=== PATIENT | male | born 1970 | race Caucasian/White ===

== ENCOUNTER 2017-09-14 06:28 | Day surgery (SDC) | payer BC ==
[2017-09-08 23:02] VITALS: BMI 35.9
[~2017-09-14 06:28] MED LIST: DEXAMETHASONE SOD PHOSPHATE 10 MG/ML 1 ML VIAL IV ONE; HYDROmorphone 0.5 MG/0.5 ML SYRINGE IVP PRN; LACTATED RINGERS 1,000 ML IV SCH; LIDOCAINE 1% 20 ML VIAL (10MG/ML) FOR IV START INTRADERMA PRN; MIDAZOLAM 2 MG/2 ML VIAL IV PRN; ONDANSETRON 4 MG/2 ML VIAL IVP ONE; SCOPOLAMINE 1.5MG/72HR PATCH TRANSDERM ONE; ceFAZolin IN SWFI 2 GM/20 ML SYRINGE IVP ONE
[2017-09-14] MEDS ORDERED: fentaNYL (PF) 50 MCG/ML 2 ML AMP IV ONE (07:35)
[2017-09-14] MEDS ORDERED: SUCCINYLCHOLINE CHLORIDE 100 MG/5 ML SYR IV ONE (07:45)
[2017-09-14] MEDS ORDERED: MIDAZOLAM 2 MG/2 ML VIAL ONE (07:45)
[2017-09-14] MEDS ORDERED: BUPIVACAINE (PF) 0.5% 30 ML VIAL ONE (07:45)
[2017-09-14] MEDS ORDERED: ePHEDrine SULFATE/0.9% NACL/PF 50 MG/5 ML SYRINGE IV ONE (07:45)
[2017-09-14] MEDS ORDERED: PROPOFOL 10 MG/ML 20 ML VIAL IV ONE (07:45)
[2017-09-14] MEDS ORDERED: LIDOCAINE 1% INJ 10MG/ML (20 ML MDV) ONE (07:45)
[2017-09-14] MEDS ORDERED: PHENYLEPHRINE-0.9% NACL SYG 1 MG/10 ML SYRINGE ONE (07:45)
[2017-09-14] MEDS ORDERED: LIDOCAINE 2%-EPI 1:100,000 20 ML VIAL ONE (07:45)
--- NOTE | 2017-09-14 08:25 | P.ONQ ---
Anesthesiology Proc Note - PNB - Peripheral Nerve Block Performed Right Interscalene Single Time Out Performed: Yes Indication: Acute Post-Operative Pain, Analgesia Specifically requested for management of pain by DrPavel: Fernando Montero Sedation Type: Sedate with meaningful contact maintained Preparation: Sterile Prep Position: Supine Catheter: None Needle Types: Other (see comment) (Pajunk) Needle Size: 50mm (2") Needle Gauge: 21 Technique: Ultrasound Injectate: Other (see comment) (15cc 2% lidocaine + 15cc 0.5% Marcaine) Adjunct: Epinephrine (see comment for dilution ratio) (1:200,000) Blood Aspirated: No Pain Paresthesia on Injection Noted: No Resistance on Injection: Normal Events: Uneventful and Well Tolerated
[2017-09-14] MEDS ORDERED: ceFAZolin 1,000 MG in SODIUM CHLORIDE 0.9% 1,000 ML IRRIGATION ONE (08:45)
[2017-09-14] MEDS ORDERED: LACTATED RINGERS 1,000 ML IV ONE (09:23)
[2017-09-14] MEDS ORDERED: TEMAZEPAM 15 MG CAP PO PRN (09:29)
[2017-09-14] MEDS ORDERED: hydrOXYzine PAMOATE 25 MG CAP PO PRN (09:29)
[2017-09-14] MEDS ORDERED: SENNOSIDES-DOCUSATE SODIUM 1 EACH TAB PO PRN (09:29)
[2017-09-14] MEDS ORDERED: ONDANSETRON 4 MG/2 ML VIAL IVP PRN (09:29)
[2017-09-14] MEDS ORDERED: HYDROmorphone 2 MG/ML 1 ML SYRINGE IVP PRN ×3 (09:29)
[2017-09-14] MEDS: HYDROcodone/APAP 5-325MG 1 EACH TAB PO PRN ×3 (11:21→19:33)
[2017-09-14] MEDS: ceFAZolin IN SWFI 2 GM/20 ML SYRINGE IVP SCH (16:18)
[2017-09-14] MEDS: LACTATED RINGERS 1,000 ML IV SCH ×2 (16:23→22:32)
[2017-09-14 19:32] VITALS: RESP 18
[2017-09-15] MEDS: HYDROcodone/APAP 5-325MG 1 EACH TAB PO PRN ×2 (00:33→05:36)
[2017-09-15] MEDS: ceFAZolin IN SWFI 2 GM/20 ML SYRINGE IVP SCH (00:38)
[2017-09-15] MEDS: LACTATED RINGERS 1,000 ML IV SCH (01:23)
[2017-09-15 08:03] VITALS: BP 126/74; PULSE 77; TEMP 97.4
--- NOTE | 2017-09-15 08:36 | P.DS ---
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 The patient presented to the orthopedic office for evaluation. After discussion and consideration patient elects to proceed with a rotator cuff repair. The patient is seen preoperatively by his primary care physician and cleared for surgery. Patient is admitted to observation at [facility] on 09/14/2017 for right shoulder rotator cuff repair with distal clavicle excision and acromioplasty. The procedures performed without complication or sequelae. The patient is doing well postoperatively. Labs and vital signs are stable on day of discharge. On day of discharge patient's shoulder incision is healing well. There is minimal erythema. There is no drainage noted at this time. There is minimal soft tissue swelling to the right upper extremity. Patient has full hand, wrist , and elbow motion without difficulty or pain. Neurovascular status to the right upper extremity is intact. Patient is discharged to home in good condition. Patient Condition at Discharge: Stable Plan - Discharge Summary Discharge Rx Participant: Yes New Discharge Prescriptions: New Cephalexin [Keflex] 500 mg PO Q8HR #15 cap Sennosides-Docusate Sodium [Senokot-S] 2 tab PO DAILY #30 tablet HYDROcodone/APAP 7.5-325MG [[place] 7.5-325] 1 - 2 tab PO Q4-6H PRN #90 tab PRN Reason: Pain hydrOXYzine PAMOATE [Vistaril] 25 mg PO TID PRN #60 cap PRN Reason: Pain Continue Lisinopril-Hctz 20-12.5 mg [Zestoretic 20-12.5] 1 tab PO DAILY Ascorbic Acid [Vitamin C] 500 mg PO DAILY Multivitamin/Iron/Folic Acid [Centrum Adults Tablet] 1 each PO DAILY Nyquil 1 dose PO HS PRN PRN Reason: Sinus Symptoms Discharge Medication List Ascorbic Acid [Vitamin C] 500 mg PO DAILY 09/07/17 [History] Lisinopril-Hctz 20-12.5 mg [Zestoretic 20-12.5] 1 tab PO DAILY 09/07/17 [History ] Multivitamin/Iron/Folic Acid [Centrum Adults Tablet] 1 each PO DAILY 09/07/17 [ History] Nyquil 1 dose PO HS PRN 09/07/17 [History] Cephalexin [Keflex] 500 mg PO Q8HR #15 cap 09/14/17 [Rx] Sennosides-Docusate Sodium [Senokot-S] 2 tab PO DAILY #30 tablet 09/14/17 [Rx] HYDROcodone/APAP 7.5-325MG [[place] 7.5-325] 1 - 2 tab PO Q4-6H PRN #90 tab [Rx] hydrOXYzine PAMOATE [Vistaril] 25 mg PO TID PRN #60 cap 09/15/17 [Rx] Follow up Appointment(s)/Referral(s): Fernando Montero DO [Doctor of Osteopathic Medicine] - 2 Weeks Activity/Diet/Wound Care/Special Instructions: Keep incision clean and dry Change dressing daily May shower in 3 days if no drainage from incision Keep arm sling/abductor pillow in place except when bathing Follow up with Dr. Montero in 2 weeks. Call [facility] with any questions or concerns. [phone] Discharge Disposition: HOME SELF-CARE
[2017-09-15] MEDS ORDERED: LISINOPRIL-HCTZ 20-12.5 MG 1 EACH TAB PO SCH (09:00)
--- NOTE | 2017-09-17 10:13 | OP ---
OPERATIVE REPORT DATE OF SERVICE: 09/14/2017 SURGEON: Fernando Montero DO. SYNTHETIC SOIL BLOCKS PULPER: Angela Rivera NP PREOPERATIVE DIAGNOSIS: Torn right rotator cuff. POSTOPERATIVE DIAGNOSIS: Torn right rotator cuff. PROCEDURE PERFORMED: Resection to the distal right clavicle, decompression acromioplasty and right rotator cuff repair utilizing Arthrex bioabsorbable suture anchor. DESCRIPTION OF PROCEDURE: Patient was taken to the operative suite and placed in supine position. A regional anesthesia block had been carried out by the department of anesthesia in the preoperative area. The patient was placed in the beach chair position, padded and secured. A Betadine prep was carried out. Sterile draped were applied in the usual manner. A minimally invasive anterolateral incision was developed over the right acromion. Sharp dissection through the subcutaneous tissue was carried out. The superior acromioclavicular ligament was identified and resected. The distal 1 cm of the clavicle was excised with a bone saw. Deltoid was then released along the anterolateral border of the acromion. The coracoacromial ligament was released. Anterolateral decompression acromioplasty was then performed. The width of the acromion was shaped with a bone saw and bone rasp. The rotator cuff was inspected and there was evidence of complete tear of junction of the supraspinatus and subscapularis tendon. The tuberosity was then removed with rongeur. A rotator cuff repair was initiated utilizing a Arthrex 5.5 bioabsorbable screw fixation in the humeral head. Following complete closure of the tear and reconstruction of this area, the area was irrigated copiously. The deltoid was then reapproximated into the acromion with #1 Ethibond suture. The fascia was approximated with #1 Vicryl suture in running fashion. The subcutaneous tissue was approximated with 2-0 Vicryl suture. The skin was approximated with 3 -0 Quill suture in a subcuticular fashion. The incision was sealed with Dermabond. A sterile dressing was applied. The patient was placed in an abductor pillow splint and transferred to the recovery room in satisfactory postop condition. GROSS PATHOLOGY: There was a complete full thickness tear of the supraspinatus and superior lateral subscapularis tendon of the right shoulder with evidence of impingement. MMODL / IJN: [id number] / [facility]
== END 2017-09-15 09:25 | disposition home or self-care (01) ==
LOC: OR 06:28 → 3OBS 09:21 → OR 09-15 09:25
PROVIDERS: ATTEND Orthopaedic Surgery
DX: M75.111 Incomplete rotator cuff tear or rupture of right shoulder, not specified as traumatic (principal); M75.41 Impingement syndrome of right shoulder; S46.811A Strain of other muscles, fascia and tendons at shoulder and upper arm level, right arm, initial encounter; W13.8XXA Fall from, out of or through other building or structure, initial encounter; M19.011 Primary osteoarthritis, right shoulder; I10 Essential (primary) hypertension; Z79.51 Long term (current) use of inhaled steroids; Z79.899 Other long term (current) drug therapy
CPT/HCPCS: 64415; 23120; 23410; C1713; J2250; J1170; J1100; J0690 ×3; J2405; J2001; J3010; J2370; J0330; J2704